=== PATIENT | female | born 1980 | race Two or more races ===

== ENCOUNTER 2017-07-11 23:40 | Emergency (ER) | payer OTHER ==
[2017-07-12] MEDS: HYDROcodone/APAP 5/325MG 1 TAB TABLET PO (00:07)
[2017-07-12] MEDS: ONDANSETRON ODT 4 MG TAB.RAPDIS. PO (00:16)
== END 2017-07-12 00:38 | disposition home or self-care (01) ==
LOC: ER 23:40
DX: S93.402A Sprain of unspecified ligament of left ankle, initial encounter (principal); X50.0XXA Overexertion from strenuous movement or load, initial encounter; Y93.89 Activity, other specified; Y99.0 Civilian activity done for income or pay; Y92.89 Other specified places as the place of occurrence of the external cause
CPT/HCPCS: 29515; 73610; 99284; Q0162